=== PATIENT | female | born 1945 | race African-American/Black ===

== ENCOUNTER 2020-11-22 12:21 | Outpatient (CLI) | payer MEDICARE | END 2020-11-22 12:22 | disposition home or self-care (01) | LOC: CSHRAD 12:21 | PROVIDERS: ATTEND Internal Medicine | DX: M25.552 Pain in left hip (principal); M25.532 Pain in left wrist; M16.12 Unilateral primary osteoarthritis, left hip; M19.032 Primary osteoarthritis, left wrist ==

== ENCOUNTER 2021-11-01 10:49 | Inpatient (IN) | payer OTHER, MEDICAID, MEDICARE ==
[2021-11-01 11:14] LABS: #Eosinphils 0.3 10x3/uL (0.0-0.5); #Monocytes 0.6 10x3/uL (0.0-1.1); #Neutrophils 5.5 10x3/uL (1.5-8.4); %Basophils 0.4 % (0.0-2.0); %Eosinophils 3.4 % (0.0-6.0); %Lymphocytes 27.4 % (18.0-47.0); %Monocytes 6.7 % (0.0-10.0); %Neutrophils 61.2 % (40.0-75.0); Hemoglobin 13.1 g/dL (12.0-15.5); Mean Corpuscular HGB CONC 31.4 g/dL (32.0-36.0); Mean Corpuscular Hemoglobin 27.4 pg (27.0-33.0); Mean Corpuscular Volume 87.2 fl (81.6-98.3); Mean Platelet Volume 11.4 fl (7.4-10.4); Platelet Count 252 10x3/uL (150-450); RBC Distribution Width 16.1 % (11.5-14.5); Red Blood Cell (RBC) Count 4.78 10x6/uL (3.90-5.03)
[2021-11-01 11:28] LABS: INR-International Normal Ratio 0.9; PTT 25.4 sec (22.0-33.0); Prothrombin Time 10.3 sec (9.5-12.1)
[2021-11-01 11:33] LABS: ALT (SGPT) 25 U/L (8-55); AST (SGOT) 24 U/L (5-34); Albumin 3.3 g/dL (3.4-4.8); Alkaline Phosphatase 108 U/L (40-110); Anion Gap 12 mmol/L (10-20); BUN (Urea Nitrogen) 33 mg/dL (9.8-20.1); Bilirubin, Total 0.3 mg/dL (0.2-1.2); Calc. Creatinine Clearance 0 mL/min (70-130); Carbon Dioxide 24 mmol/L (23-31); Chloride 108 mmol/L (98-107); Globulin 2.5 g/dL (2.4-3.5); Glucose 346 mg/dL (83-110); Potassium 4.3 mmol/L (3.5-5.1); Protein, Total 5.8 g/dL (5.8-8.1); Sodium 140 mmol/L (136-145)
[2021-11-01 13:26] LABS: Bilirubin Neg (Negative); Blood, Urine 10 (Negative); Clarity Slightly Cloudy (Clear); Glucose, Urine (Dipstick) >=1000 mg/dL (Negative); Ketone, Urine Negative (Negative); Leukocyte 500 (Negative); Nitrite Positive (Negative); Protein, Urine (Dipstick) 30 mg/dl (Neg-Trace); Specific Gravity, Urine 1.005 (1.002-1.036); Urobilinogen Normal mg/dL (Less than 2)
[2021-11-01 13:42] LABS: Bacteria/HPF 2+ HPF (None Seen)
[2021-11-01] MEDS ORDERED: traMADol HCl 50 MG TAB PO PRN (15:05)
[2021-11-01] MEDS ORDERED: Dextrose 50% Abboject 50 ML SYRINGE SLOW IVP PRN (15:07)
[2021-11-01] MEDS ORDERED: Ondansetron PF 4 MG/2 ML Vial IVP PRN (15:07)
[2021-11-01] MEDS ORDERED: Dextrose 5% in Water 1,000 ML IV PRN (15:07)
[2021-11-01] MEDS ORDERED: Acetaminophen 325 MG TAB PO PRN (15:07)
[2021-11-01] MEDS ORDERED: Lactated Ringer's 1,000 ML IV SCH (15:15)
[2021-11-01] MEDS ORDERED: Aspirin Chewable 81 MG TAB ONE (16:06)
[2021-11-01] MEDS ORDERED: cefTRIAXone\\ROCEPHIN 1 GM VIAL ONE (16:06)
[2021-11-01 19:33] VITALS: BMI 33.3
[2021-11-01] MEDS: Atorvastatin Calcium 10 MG TAB PO SCH (21:47)
[2021-11-01] MEDS: busPIRone HCl 15 MG TAB PO SCH (21:49)
[2021-11-01] MEDS: Amlodipine 10 MG TAB PO SCH (21:49)
[2021-11-01] MEDS: HumaLOG 300 UNITS/3 ML VIAL SC PRN (21:51)
[2021-11-01] MEDS: Nateglinide 120 MG TAB PO SCH (21:57)
[2021-11-01] MEDS ORDERED: hydrALAZINE 25 MG TAB PO SCH (23:45)
[2021-11-02 04:49] LABS: #Basophils 0.1 10x3/uL (0.0-0.2); #Eosinphils 0.4 10x3/uL (0.0-0.5); #Monocytes 0.7 10x3/uL (0.0-1.1); #Neutrophils 7.5 10x3/uL (1.5-8.4); %Basophils 0.4 % (0.0-2.0); %Eosinophils 3.2 % (0.0-6.0); %Lymphocytes 21.9 % (18.0-47.0); %Monocytes 6.5 % (0.0-10.0); %Neutrophils 67.4 % (40.0-75.0); Hemoglobin 14.5 g/dL (12.0-15.5); Mean Corpuscular HGB CONC 31.3 g/dL (32.0-36.0); Mean Corpuscular Hemoglobin 27.3 pg (27.0-33.0); Mean Platelet Volume 11.9 fl (7.4-10.4); Platelet Count 270 10x3/uL (150-450); RBC Distribution Width 16.7 % (11.5-14.5); Red Blood Cell (RBC) Count 5.32 10x6/uL (3.90-5.03); White Blood Cell (WBC) Count 11.2 10x3/uL (3.5-10.5)
[2021-11-02 05:11] LABS: Anion Gap 15 mmol/L (10-20); BUN (Urea Nitrogen) 29 mg/dL (9.8-20.1); Calc. Creatinine Clearance 48 mL/min (70-130); Calcium 9.2 mg/dL (7.8-10.44); Carbon Dioxide 21 mmol/L (23-31); Chloride 110 mmol/L (98-107); Glucose 239 mg/dL (83-110); Potassium 4.2 mmol/L (3.5-5.1); Sodium 142 mmol/L (136-145)
[2021-11-02] MEDS: HumaLOG 300 UNITS/3 ML VIAL SC PRN ×3 (06:39→21:16)
[2021-11-02] MEDS ORDERED: Furosemide 40 MG TAB PO SCH (09:00)
[2021-11-02] MEDS: Allopurinol 300 MG TAB PO SCH (09:10)
[2021-11-02] MEDS: Clopidogrel Bisulfate 75 MG TAB PO SCH (09:10)
[2021-11-02] MEDS: Empagliflozin 10 MG TAB PO SCH (09:10)
[2021-11-02] MEDS: Potassium Chloride 10 MEQ TAB PO SCH (09:10)
[2021-11-02] MEDS: Nateglinide 120 MG TAB PO SCH ×3 (09:10→21:15)
[2021-11-02] MEDS: busPIRone HCl 15 MG TAB PO SCH ×3 (09:11→21:16)
[2021-11-02] MEDS: Aspirin 81 mg Enteric Coated Tablet PO SCH (09:11)
[2021-11-02] MEDS ORDERED: cefTRIAXone\\ROCEPHIN 1 GM in Sodium Chloride 0.9% 100 ML IVPB SCH (16:00)
[2021-11-02] MEDS: Amlodipine 10 MG TAB PO SCH (21:16)
[2021-11-02] MEDS: Atorvastatin Calcium 10 MG TAB PO SCH (21:16)
[2021-11-03 04:42] LABS: #Basophils 0.1 10x3/uL (0.0-0.2); #Eosinphils 0.3 10x3/uL (0.0-0.5); #Monocytes 0.7 10x3/uL (0.0-1.1); #Neutrophils 8.5 10x3/uL (1.5-8.4); %Basophils 0.6 % (0.0-2.0); %Eosinophils 2.8 % (0.0-6.0); %Lymphocytes 21.7 % (18.0-47.0); %Monocytes 5.7 % (0.0-10.0); %Neutrophils 68.6 % (40.0-75.0); Hemoglobin 14.8 g/dL (12.0-15.5); Mean Corpuscular HGB CONC 31.7 g/dL (32.0-36.0); Mean Corpuscular Hemoglobin 27.1 pg (27.0-33.0); Mean Corpuscular Volume 85.5 fl (81.6-98.3); Mean Platelet Volume 11.3 fl (7.4-10.4); Platelet Count 285 10x3/uL (150-450); RBC Distribution Width 16.3 % (11.5-14.5); Red Blood Cell (RBC) Count 5.46 10x6/uL (3.90-5.03); White Blood Cell (WBC) Count 12.4 10x3/uL (3.5-10.5)
[2021-11-03 04:53] LABS: Anion Gap 15 mmol/L (10-20); BUN (Urea Nitrogen) 32 mg/dL (9.8-20.1); Calc. Creatinine Clearance 52 mL/min (70-130); Calcium 9.7 mg/dL (7.8-10.44); Carbon Dioxide 19 mmol/L (23-31); Chloride 112 mmol/L (98-107); Glucose 197 mg/dL (83-110); Potassium 4.2 mmol/L (3.5-5.1); Sodium 142 mmol/L (136-145)
[2021-11-03] MEDS: HumaLOG 300 UNITS/3 ML VIAL SC PRN (05:44)
[2021-11-03] MEDS: Potassium Chloride 10 MEQ TAB PO SCH (08:30)
[2021-11-03] MEDS: Nateglinide 120 MG TAB PO SCH ×2 (08:30→14:55)
[2021-11-03] MEDS: Aspirin 81 mg Enteric Coated Tablet PO SCH (08:30)
[2021-11-03] MEDS: busPIRone HCl 15 MG TAB PO SCH ×2 (08:31→14:54)
[2021-11-03] MEDS: Empagliflozin 10 MG TAB PO SCH (08:31)
[2021-11-03] MEDS: Allopurinol 300 MG TAB PO SCH (08:31)
[2021-11-03] MEDS: Clopidogrel Bisulfate 75 MG TAB PO SCH (08:31)
[2021-11-03] MEDS ORDERED: Sodium Bicarbonate Tab 325 MG TAB PO SCH ×2 (09:15→21:00)
[2021-11-03 16:43] VITALS: BP 180/95; TEMP 97.8
[2021-11-04] MEDS ORDERED: Non-Formulary Medication 1 EACH (Semaglutide [Rybelsus] 14 MG Tablet) PO SCH (06:00)
== END 2021-11-03 18:00 | disposition home or self-care (01) | DRG 683 ==
LOC: CSHERS 10:49 → CSHTELE 15:44 → UNDOADMIN 15:44 → CSHTELE 11-03 09:09 → UNDODISIN 11-03 18:00
PROVIDERS: ADMIT Internal Medicine; ATTEND Hospitalist
DX: N17.9 Acute kidney failure, unspecified (principal); G45.9 Transient cerebral ischemic attack, unspecified; N18.30 Chronic kidney disease, stage 3 unspecified; I12.9 Hypertensive chronic kidney disease with stage 1 through stage 4 chronic kidney disease, or unspecified chronic kidney disease; E11.22 Type 2 diabetes mellitus with diabetic chronic kidney disease; E78.5 Hyperlipidemia, unspecified; M10.9 Gout, unspecified; R82.81 Pyuria; E66.9 Obesity, unspecified; I25.10 Atherosclerotic heart disease of native coronary artery without angina pectoris; Z79.899 Other long term (current) drug therapy; Z68.33 Body mass index [BMI] 33.0-33.9, adult
CPT/HCPCS: 36415; 36416; 70450; 70551; 71045; 80048; 80053; 81003; 81015; 84484; 85025; 85610; 85730; 87086; 93005; 93306; 93880; 96365; J0696; J1815; J3490; J7120

== ENCOUNTER 2021-11-22 12:28 | Inpatient (IN) | payer MEDICARE, MEDICAID ==
[2021-11-22 13:23] LABS: Lipase 26 U/L (8-78); Magnesium 2.3 mg/dL (1.6-2.6)
[2021-11-22 15:56] LABS: #Basophils 0.1 10x3/uL (0.0-0.2); #Eosinphils 0.4 10x3/uL (0.0-0.5); #Monocytes 0.8 10x3/uL (0.0-1.1); #Neutrophils 6.6 10x3/uL (1.5-8.4); %Basophils 0.5 % (0.0-2.0); %Eosinophils 3.2 % (0.0-6.0); %Lymphocytes 27.5 % (18.0-47.0); %Monocytes 7.6 % (0.0-10.0); %Neutrophils 60.4 % (40.0-75.0); Hemoglobin 12.6 g/dL (12.0-15.5); Mean Corpuscular HGB CONC 31.2 g/dL (32.0-36.0); Mean Corpuscular Hemoglobin 27.6 pg (27.0-33.0); Mean Corpuscular Volume 88.6 fl (81.6-98.3); Mean Platelet Volume 11.9 fl (7.4-10.4); Platelet Count 251 10x3/uL (150-450); RBC Distribution Width 16.1 % (11.5-14.5); Red Blood Cell (RBC) Count 4.56 10x6/uL (3.90-5.03)
[2021-11-22 16:09] LABS: ALT (SGPT) 15 U/L (8-55); AST (SGOT) 18 U/L (5-34); Albumin 3.5 g/dL (3.4-4.8); Alkaline Phosphatase 87 U/L (40-110); Anion Gap 12 mmol/L (10-20); BUN (Urea Nitrogen) 23 mg/dL (9.8-20.1); Bilirubin, Total 0.4 mg/dL (0.2-1.2); Calc. Creatinine Clearance 0 mL/min (70-130); Calcium 9.3 mg/dL (7.8-10.44); Carbon Dioxide 24 mmol/L (23-31); Chloride 106 mmol/L (98-107); Globulin 2.2 g/dL (2.4-3.5); Glucose 210 mg/dL (83-110); Protein, Total 5.7 g/dL (5.8-8.1); Sodium 138 mmol/L (136-145)
[2021-11-22] MEDS ORDERED: HYDROcodone/Acetaminophen 5/325 mg Tablet PO PRN (18:10)
[2021-11-22] MEDS ORDERED: Ondansetron PF 4 MG/2 ML Vial IVP PRN (18:10)
[2021-11-22 19:13] VITALS: BMI 33.2
[2021-11-22 19:16] LABS: Bilirubin Neg (Negative); Blood, Urine Negative (Negative); Clarity Clear (Clear); Glucose, Urine (Dipstick) >=1000 mg/dL (Negative); Ketone, Urine Negative (Negative); Leukocyte 100 (Negative); Nitrite Negative (Negative); Protein, Urine (Dipstick) Negative (Neg-Trace); Specific Gravity, Urine 1.005 (1.002-1.036); Urobilinogen Normal mg/dL (Less than 2)
[2021-11-22 19:21] LABS: Urine Culture Reflex No No
[2021-11-22 19:22] LABS: RBC/HPF 0-3 HPF (0-3)
[2021-11-22 19:23] LABS: Bacteria/HPF 1+ HPF (None Seen); Squamous Epithelial 0-3 HPF (0-3)
[2021-11-22] MEDS ORDERED: Dextrose 50% Abboject 50 ML SYRINGE SLOW IVP PRN (19:30)
[2021-11-22] MEDS ORDERED: Dextrose 5% in Water 1,000 ML IV PRN (19:30)
[2021-11-22] MEDS: Lactated Ringer's 1,000 ML IV SCH (19:46)
[2021-11-22] MEDS: Acetaminophen 325 MG TAB PO PRN (21:22)
[2021-11-22] MEDS: Atorvastatin Calcium 10 MG TAB PO SCH (21:25)
[2021-11-22] MEDS: Gabapentin 300 MG CAP PO SCH (21:25)
[2021-11-22] MEDS: Sodium Bicarbonate Tab 325 MG TAB PO SCH (21:25)
[2021-11-22] MEDS: busPIRone HCl 15 MG TAB PO SCH (21:25)
[2021-11-22] MEDS: HumaLOG 300 UNITS/3 ML VIAL SC PRN (21:26)
[2021-11-22] MEDS: Heparin 5,000 UNITS/ML VIAL SC SCH (21:54)
[2021-11-23 04:59] LABS: Hemoglobin 14.6 g/dL (12.0-15.5); Mean Corpuscular HGB CONC 31.1 g/dL (32.0-36.0); Mean Corpuscular Hemoglobin 27.4 pg (27.0-33.0); Mean Corpuscular Volume 88.2 fl (81.6-98.3); Mean Platelet Volume 11.2 fl (7.4-10.4); Platelet Count 261 10x3/uL (150-450); RBC Distribution Width 16.2 % (11.5-14.5); Red Blood Cell (RBC) Count 5.32 10x6/uL (3.90-5.03); White Blood Cell (WBC) Count 9.3 10x3/uL (3.5-10.5)
[2021-11-23 05:09] LABS: Anion Gap 16 mmol/L (10-20); BUN (Urea Nitrogen) 22 mg/dL (9.8-20.1); Calc. Creatinine Clearance 32 mL/min (70-130); Calcium 10.2 mg/dL (7.8-10.44); Carbon Dioxide 26 mmol/L (23-31); Chloride 107 mmol/L (98-107); Glucose 166 mg/dL (83-110); Potassium 3.6 mmol/L (3.5-5.1); Sodium 145 mmol/L (136-145)
[2021-11-23] MEDS: HumaLOG 300 UNITS/3 ML VIAL SC PRN ×4 (06:13→20:06)
[2021-11-23] MEDS: Lactated Ringer's 1,000 ML IV SCH ×2 (08:54→21:31)
[2021-11-23] MEDS: Lantus 1000 UNITS/10 ML VIAL SC SCH (08:54)
[2021-11-23] MEDS: Clopidogrel Bisulfate 75 MG TAB PO SCH (08:55)
[2021-11-23] MEDS: Amlodipine 10 MG TAB PO SCH (08:55)
[2021-11-23] MEDS: Empagliflozin 10 MG TAB PO SCH (08:55)
[2021-11-23] MEDS: Gabapentin 300 MG CAP PO SCH ×2 (08:55→20:05)
[2021-11-23] MEDS: Heparin 5,000 UNITS/ML VIAL SC SCH ×3 (08:55→20:06)
[2021-11-23] MEDS: busPIRone HCl 15 MG TAB PO SCH ×2 (08:55→20:06)
[2021-11-23] MEDS: Sodium Bicarbonate Tab 325 MG TAB PO SCH ×2 (08:55→20:06)
[2021-11-23] MEDS: Aspirin 81 mg Enteric Coated Tablet PO SCH (08:55)
[2021-11-23] MEDS: Allopurinol 300 MG TAB PO SCH (08:55)
[2021-11-23 15:50] LABS: SARS-CoV-2 PCR by NAA Not Detected (NotDetected)
[2021-11-23] MEDS: Atorvastatin Calcium 10 MG TAB PO SCH (20:06)
[2021-11-24] MEDS: HumaLOG 300 UNITS/3 ML VIAL SC PRN ×4 (03:49→21:56)
[2021-11-24] MEDS: Acetaminophen 325 MG TAB PO PRN (04:38)
[2021-11-24] MEDS: Heparin 5,000 UNITS/ML VIAL SC SCH ×3 (09:04→21:50)
[2021-11-24] MEDS: Clopidogrel Bisulfate 75 MG TAB PO SCH (09:04)
[2021-11-24] MEDS: Allopurinol 300 MG TAB PO SCH (09:04)
[2021-11-24] MEDS: Sodium Bicarbonate Tab 325 MG TAB PO SCH ×2 (09:04→21:33)
[2021-11-24] MEDS: Empagliflozin 10 MG TAB PO SCH (09:04)
[2021-11-24] MEDS: Aspirin 81 mg Enteric Coated Tablet PO SCH (09:04)
[2021-11-24] MEDS: Gabapentin 300 MG CAP PO SCH ×2 (09:04→21:32)
[2021-11-24] MEDS: busPIRone HCl 15 MG TAB PO SCH ×2 (09:04→21:32)
[2021-11-24] MEDS: Lantus 1000 UNITS/10 ML VIAL SC SCH (09:04)
[2021-11-24] MEDS: Amlodipine 10 MG TAB PO SCH (09:04)
[2021-11-24] MEDS ORDERED: cefTRIAXone\\ROCEPHIN 1 GM in Sodium Chloride 0.9% 100 ML IVPB SCH (09:45)
[2021-11-24] MEDS ORDERED: Amoxicillin/Potassium Clav 500 MG TAB PO SCH (10:30)
[2021-11-24] MEDS: Lactated Ringer's 1,000 ML IV SCH (10:39)
[2021-11-24] MEDS: Atorvastatin Calcium 10 MG TAB PO SCH (21:33)
[2021-11-24] MEDS: Amoxicillin/Potassium Clav 500 MG TAB PO SCH (21:36)
[2021-11-25] MEDS: HumaLOG 300 UNITS/3 ML VIAL SC PRN ×4 (06:44→20:23)
[2021-11-25] MEDS: Senokot 8.6 MG TAB PO PRN ×2 (06:46→17:25)
[2021-11-25 09:05] LABS: #Basophils 0.1 10x3/uL (0.0-0.2); #Eosinphils 0.4 10x3/uL (0.0-0.5); #Monocytes 0.6 10x3/uL (0.0-1.1); #Neutrophils 5.5 10x3/uL (1.5-8.4); %Basophils 0.6 % (0.0-2.0); %Monocytes 6.6 % (0.0-10.0); %Neutrophils 58.1 % (40.0-75.0); Hemoglobin 14.6 g/dL (12.0-15.5); Mean Corpuscular HGB CONC 31.2 g/dL (32.0-36.0); Mean Corpuscular Hemoglobin 28.1 pg (27.0-33.0); Mean Platelet Volume 11.1 fl (7.4-10.4); Platelet Count 261 10x3/uL (150-450); RBC Distribution Width 16.1 % (11.5-14.5); White Blood Cell (WBC) Count 9.5 10x3/uL (3.5-10.5)
[2021-11-25] MEDS: busPIRone HCl 15 MG TAB PO SCH ×2 (09:13→20:22)
[2021-11-25] MEDS: Sodium Bicarbonate Tab 325 MG TAB PO SCH ×2 (09:13→20:21)
[2021-11-25] MEDS: Aspirin 81 mg Enteric Coated Tablet PO SCH (09:14)
[2021-11-25] MEDS: Allopurinol 300 MG TAB PO SCH (09:14)
[2021-11-25] MEDS: Lantus 1000 UNITS/10 ML VIAL SC SCH (09:15)
[2021-11-25] MEDS: Amlodipine 10 MG TAB PO SCH (09:15)
[2021-11-25] MEDS: Gabapentin 300 MG CAP PO SCH ×2 (09:15→20:21)
[2021-11-25] MEDS: Heparin 5,000 UNITS/ML VIAL SC SCH ×3 (09:15→20:24)
[2021-11-25] MEDS: Clopidogrel Bisulfate 75 MG TAB PO SCH (09:15)
[2021-11-25] MEDS: Empagliflozin 10 MG TAB PO SCH (09:17)
[2021-11-25] MEDS: Amoxicillin/Potassium Clav 500 MG TAB PO SCH ×2 (09:17→20:22)
[2021-11-25 09:31] LABS: Anion Gap 12 mmol/L (10-20); BUN (Urea Nitrogen) 26 mg/dL (9.8-20.1); Calc. Creatinine Clearance 45 mL/min (70-130); Calcium 9.8 mg/dL (7.8-10.44); Carbon Dioxide 26 mmol/L (23-31); Chloride 110 mmol/L (98-107); Glucose 127 mg/dL (83-110); Potassium 3.7 mmol/L (3.5-5.1); Sodium 144 mmol/L (136-145)
[2021-11-25] MEDS: Atorvastatin Calcium 10 MG TAB PO SCH (20:22)
[2021-11-26] MEDS: HumaLOG 300 UNITS/3 ML VIAL SC PRN ×3 (06:39→21:28)
[2021-11-26] MEDS: Allopurinol 300 MG TAB PO SCH (09:28)
[2021-11-26] MEDS: busPIRone HCl 15 MG TAB PO SCH ×2 (09:28→21:27)
[2021-11-26] MEDS: Aspirin 81 mg Enteric Coated Tablet PO SCH (09:28)
[2021-11-26] MEDS: Empagliflozin 10 MG TAB PO SCH (09:28)
[2021-11-26] MEDS: Sodium Bicarbonate Tab 325 MG TAB PO SCH ×2 (09:28→21:27)
[2021-11-26] MEDS: Amlodipine 10 MG TAB PO SCH (09:28)
[2021-11-26] MEDS: Clopidogrel Bisulfate 75 MG TAB PO SCH (09:28)
[2021-11-26] MEDS: Heparin 5,000 UNITS/ML VIAL SC SCH ×3 (09:29→21:29)
[2021-11-26] MEDS: Gabapentin 300 MG CAP PO SCH ×2 (09:29→21:28)
[2021-11-26] MEDS: Lantus 1000 UNITS/10 ML VIAL SC SCH (09:29)
[2021-11-26] MEDS ORDERED: AMOXicillin 500 MG CAP PO SCH (14:00)
[2021-11-26] MEDS ORDERED: AMOXicillin 250 MG CAP PO SCH (14:45)
[2021-11-26] MEDS: Amoxicillin/Potassium Clav 500 MG TAB PO SCH (15:12)
[2021-11-26] MEDS: Atorvastatin Calcium 10 MG TAB PO SCH (21:27)
[2021-11-26] MEDS: AMOXicillin 250 MG CAP PO SCH (23:50)
[2021-11-27] MEDS: AMOXicillin 250 MG CAP PO SCH ×2 (06:18→14:22)
[2021-11-27] MEDS: HumaLOG 300 UNITS/3 ML VIAL SC PRN ×2 (06:19→11:43)
[2021-11-27] MEDS: busPIRone HCl 15 MG TAB PO SCH (08:53)
[2021-11-27] MEDS: Gabapentin 300 MG CAP PO SCH (08:53)
[2021-11-27] MEDS: Empagliflozin 10 MG TAB PO SCH (08:53)
[2021-11-27] MEDS: Sodium Bicarbonate Tab 325 MG TAB PO SCH (08:53)
[2021-11-27] MEDS: Amlodipine 10 MG TAB PO SCH (08:53)
[2021-11-27] MEDS: Aspirin 81 mg Enteric Coated Tablet PO SCH (08:53)
[2021-11-27] MEDS: Clopidogrel Bisulfate 75 MG TAB PO SCH (08:53)
[2021-11-27] MEDS: Heparin 5,000 UNITS/ML VIAL SC SCH ×2 (08:54→14:22)
[2021-11-27] MEDS: Allopurinol 300 MG TAB PO SCH (08:54)
[2021-11-27] MEDS: Lantus 1000 UNITS/10 ML VIAL SC SCH (08:54)
[2021-11-27 11:46] VITALS: TEMP 97
[2021-11-27] MEDS ORDERED: Benzonatate 100 MG CAP PO PRN (13:13)
[2021-11-27 15:34] VITALS: BP 157/87
[2021-11-28] MEDS ORDERED: Furosemide 40 MG TAB PO SCH (07:30)
== END 2021-11-27 15:35 | DRG 683 ==
LOC: CSHERS 12:28 → CSHTELE 18:32
PROVIDERS: ADMIT Internal Medicine; ATTEND Emergency Medicine
DX: N17.9 Acute kidney failure, unspecified (principal); I13.0 Hypertensive heart and chronic kidney disease with heart failure and stage 1 through stage 4 chronic kidney disease, or unspecified chronic kidney disease; I50.32 Chronic diastolic (congestive) heart failure; N39.0 Urinary tract infection, site not specified; Z20.822 Contact with and (suspected) exposure to COVID-19; E11.22 Type 2 diabetes mellitus with diabetic chronic kidney disease; M10.9 Gout, unspecified; N18.2 Chronic kidney disease, stage 2 (mild); I25.10 Atherosclerotic heart disease of native coronary artery without angina pectoris; E11.42 Type 2 diabetes mellitus with diabetic polyneuropathy; F32.A Depression, unspecified; E86.0 Dehydration; K21.9 Gastro-esophageal reflux disease without esophagitis; B95.2 Enterococcus as the cause of diseases classified elsewhere; Z60.2 Problems related to living alone; Z90.710 Acquired absence of both cervix and uterus; Z79.899 Other long term (current) drug therapy; Z86.73 Personal history of transient ischemic attack (TIA), and cerebral infarction without residual deficits; Z79.02 Long term (current) use of antithrombotics/antiplatelets; Z79.82 Long term (current) use of aspirin; Z83.3 Family history of diabetes mellitus; Z82.49 Family history of ischemic heart disease and other diseases of the circulatory system; Z95.5 Presence of coronary angioplasty implant and graft
CPT/HCPCS: 36415; 36416; 70450; 72125; 72131; 72170; 80048; 80053; 81001; 82550; 83690; 83735; 84443; 84484; 85025; 85027; 87077; 87086; 87186; 93005; 94760; J1644; J1815; J7120; U0003; U0005

== ENCOUNTER 2022-03-27 12:46 | Emergency (ER) | payer OTHER ==
[2022-03-27 13:25] LABS: #Basophils 0.1 10x3/uL (0.0-0.2); #Eosinphils 0.3 10x3/uL (0.0-0.5); #Monocytes 0.5 10x3/uL (0.0-1.1); #Neutrophils 6.7 10x3/uL (1.5-8.4); %Basophils 0.5 % (0.0-2.0); %Eosinophils 2.7 % (0.0-6.0); %Lymphocytes 19.4 % (18.0-47.0); %Monocytes 5.5 % (0.0-10.0); %Neutrophils 71.7 % (40.0-75.0); Mean Corpuscular Hemoglobin 27.4 pg (27.0-33.0); Mean Corpuscular Volume 88.4 fl (81.6-98.3); Mean Platelet Volume 10.9 fl (7.4-10.4); Platelet Count 273 10x3/uL (150-450); RBC Distribution Width 15.1 % (11.5-14.5); Red Blood Cell (RBC) Count 4.75 10x6/uL (3.90-5.03); White Blood Cell (WBC) Count 9.4 10x3/uL (3.5-10.5)
[2022-03-27 13:40] LABS: ALT (SGPT) 18 U/L (8-55); AST (SGOT) 22 U/L (5-34); Albumin 2.5 g/dL (3.4-4.8); Alkaline Phosphatase 102 U/L (40-110); Anion Gap 11 mmol/L (10-20); BUN (Urea Nitrogen) 37 mg/dL (9.8-20.1); Bilirubin, Total 0.3 mg/dL (0.2-1.2); Calc. Creatinine Clearance 0 mL/min (70-130); Calcium 8.1 mg/dL (7.8-10.44); Carbon Dioxide 22 mmol/L (23-31); Chloride 114 mmol/L (98-107); Estimated GFR 26; Globulin 2.1 g/dL (2.4-3.5); Glucose 178 mg/dL (83-110); Protein, Total 4.6 g/dL (5.8-8.1); Sodium 143 mmol/L (136-145)
[2022-03-27] MEDS ORDERED: Furosemide 40 MG/4 ML VIAL ONE (14:43)
== END 2022-03-27 15:05 | disposition home or self-care (01) ==
LOC: CSHERS 12:46
DX: I11.0 Hypertensive heart disease with heart failure (principal); I50.9 Heart failure, unspecified; E11.9 Type 2 diabetes mellitus without complications
CPT/HCPCS: 36415; 71045; 80053; 84484; 85025; 93005; 96374; J1940

== ENCOUNTER 2022-05-14 14:02 | Emergency (ER) | payer OTHER, MEDICAID ==
[2022-05-14 16:18] LABS: #Basophils 0.1 10x3/uL (0.0-0.2); #Eosinphils 0.6 10x3/uL (0.0-0.5); #Monocytes 0.7 10x3/uL (0.0-1.1); #Neutrophils 7.4 10x3/uL (1.5-8.4); %Basophils 0.6 % (0.0-2.0); %Eosinophils 4.9 % (0.0-6.0); %Lymphocytes 21.8 % (18.0-47.0); %Monocytes 6.4 % (0.0-10.0); %Neutrophils 65.4 % (40.0-75.0); Hemoglobin 15.8 g/dL (12.0-15.5); Mean Corpuscular HGB CONC 32.2 g/dL (32.0-36.0); Mean Corpuscular Hemoglobin 28.2 pg (27.0-33.0); Mean Corpuscular Volume 87.5 fl (81.6-98.3); Mean Platelet Volume 10.9 fl (7.4-10.4); Platelet Count 319 10x3/uL (150-450); RBC Distribution Width 16.9 % (11.5-14.5); Red Blood Cell (RBC) Count 5.61 10x6/uL (3.90-5.03); White Blood Cell (WBC) Count 11.3 10x3/uL (3.5-10.5)
[2022-05-14 16:20] LABS: ALT (SGPT) 12 U/L (8-55); AST (SGOT) 20 U/L (5-34); Albumin 2.2 g/dL (3.4-4.8); Alkaline Phosphatase 102 U/L (40-110); Anion Gap 12 mmol/L (10-20); BUN (Urea Nitrogen) 44 mg/dL (9.8-20.1); Bilirubin, Total 0.2 mg/dL (0.2-1.2); Calc. Creatinine Clearance 0 mL/min (70-130); Calcium 8.4 mg/dL (7.8-10.44); Carbon Dioxide 19 mmol/L (23-31); Chloride 111 mmol/L (98-107); Estimated GFR 12; Globulin 2.9 g/dL (2.4-3.5); Glucose 156 mg/dL (83-110); Potassium 3.7 mmol/L (3.5-5.1); Protein, Total 5.1 g/dL (5.8-8.1); Sodium 138 mmol/L (136-145)
[2022-05-14] MEDS ORDERED: Furosemide 40 MG/4 ML VIAL ONE (16:20)
[2022-05-14] MEDS ORDERED: Acetaminophen 500 MG TAB ONE (19:32)
[2022-05-14 20:50] LABS: CKMB 2.8 ng/mL (0-6.6)
== END 2022-05-14 21:50 | disposition home or self-care (01) ==
LOC: CSHERS 14:02
DX: I11.0 Hypertensive heart disease with heart failure (principal); I50.9 Heart failure, unspecified; E11.9 Type 2 diabetes mellitus without complications
CPT/HCPCS: 36415; 71045; 80053; 82553; 83880; 84484; 85025; 93005; 96374; J1940

== ENCOUNTER 2022-05-29 16:50 | Observation (INO) | payer OTHER, MEDICAID ==
[2022-05-29 18:18] LABS: #Eosinphils 0.3 10x3/uL (0.0-0.5); #Monocytes 0.6 10x3/uL (0.0-1.1); #Neutrophils 7.5 10x3/uL (1.5-8.4); %Basophils 0.4 % (0.0-2.0); %Lymphocytes 23.8 % (18.0-47.0); %Monocytes 5.7 % (0.0-10.0); %Neutrophils 66.7 % (40.0-75.0); Mean Corpuscular HGB CONC 32.3 g/dL (32.0-36.0); Mean Corpuscular Hemoglobin 28.1 pg (27.0-33.0); Mean Corpuscular Volume 86.8 fl (81.6-98.3); Mean Platelet Volume 11.1 fl (7.4-10.4); Platelet Count 322 10x3/uL (150-450); RBC Distribution Width 16.8 % (11.5-14.5); Red Blood Cell (RBC) Count 4.99 10x6/uL (3.90-5.03); White Blood Cell (WBC) Count 11.2 10x3/uL (3.5-10.5)
[2022-05-29 18:33] LABS: ALT (SGPT) 10 U/L (8-55); AST (SGOT) 19 U/L (5-34); Albumin 2.1 g/dL (3.4-4.8); Alkaline Phosphatase 103 U/L (40-110); Anion Gap 13 mmol/L (10-20); BUN (Urea Nitrogen) 54 mg/dL (9.8-20.1); Bilirubin, Total 0.2 mg/dL (0.2-1.2); Calc. Creatinine Clearance 0 mL/min (70-130); Calcium 8.3 mg/dL (7.8-10.44); Carbon Dioxide 23 mmol/L (23-31); Chloride 108 mmol/L (98-107); Estimated GFR 13; Globulin 2.2 g/dL (2.4-3.5); Glucose 107 mg/dL (83-110); Potassium 3.3 mmol/L (3.5-5.1); Protein, Total 4.3 g/dL (5.8-8.1); Sodium 141 mmol/L (136-145)
[2022-05-29] MEDS ORDERED: Furosemide 40 MG/4 ML VIAL ONE (18:54)
[2022-05-29 19:13] LABS: CKMB 2.6 ng/mL (0-6.6)
[2022-05-29] MEDS ORDERED: Dextrose 5% in Water 1,000 ML IV PRN (20:07)
[2022-05-29] MEDS ORDERED: Dextrose 50% Abboject 50 ML SYRINGE SLOW IVP PRN (20:07)
[2022-05-29] MEDS ORDERED: HumaLOG 300 UNITS/3 ML VIAL SC PRN (20:07)
[2022-05-29 20:28] LABS: Magnesium 2.1 mg/dL (1.6-2.6); Phosphorus 3.5 mg/dL (2.3-4.7)
[2022-05-29 21:02] LABS: Troponin I 0.077 ng/mL (< 0.028)
[2022-05-29] MEDS ORDERED: Potassium Chloride 20 MEQ TAB PO SCH (21:15)
[2022-05-29] MEDS: Amlodipine 10 MG TAB PO SCH (22:11)
[2022-05-29] MEDS: Heparin 5,000 UNITS/ML VIAL SC SCH (22:12)
[2022-05-29] MEDS: busPIRone HCl 5 MG TAB PO SCH (22:12)
[2022-05-29] MEDS: Atorvastatin Calcium 10 MG TAB PO SCH (22:12)
[2022-05-29] MEDS ORDERED: FLU VACC QS2022-23(65YR UP)/PF 240 MCG/0.7 ML SYRINGE IM ONE (23:45)
[2022-05-30] LABS: Troponin I 0.075 ng/mL (< 0.028)
[2022-05-30 00:55] LABS: Bilirubin Neg (Negative); Blood, Urine 10 (Negative); Clarity Clear (Clear); Glucose, Urine (Dipstick) 100 mg/dL (Negative); Ketone, Urine Negative (Negative); Leukocyte Negative (Negative); Nitrite Negative (Negative); Protein, Urine (Dipstick) 500 mg/dl (Neg-Trace); Specific Gravity, Urine 1.005 (1.005-1.030); Urobilinogen Normal mg/dL (Less than 2)
[2022-05-30 01:02] LABS: Bacteria/HPF Rare-Few HPF (None Seen); RBC/HPF 0-3 HPF (0-3); Squamous Epithelial 0-3 HPF (0-3); WBC/HPF 0-3 HPF (0-3)
[2022-05-30 05:24] LABS: #Basophils 0.1 10x3/uL (0.0-0.2); #Eosinphils 0.5 10x3/uL (0.0-0.5); #Monocytes 0.8 10x3/uL (0.0-1.1); #Neutrophils 5.1 10x3/uL (1.5-8.4); %Basophils 0.5 % (0.0-2.0); %Eosinophils 5.2 % (0.0-6.0); %Lymphocytes 33.1 % (18.0-47.0); %Monocytes 7.8 % (0.0-10.0); %Neutrophils 52.6 % (40.0-75.0); Hemoglobin 12.7 g/dL (12.0-15.5); Mean Corpuscular Hemoglobin 27.7 pg (27.0-33.0); Mean Corpuscular Volume 86.5 fl (81.6-98.3); Mean Platelet Volume 11.3 fl (7.4-10.4); Platelet Count 286 10x3/uL (150-450); RBC Distribution Width 16.7 % (11.5-14.5); Red Blood Cell (RBC) Count 4.59 10x6/uL (3.90-5.03); White Blood Cell (WBC) Count 9.7 10x3/uL (3.5-10.5)
[2022-05-30 05:41] LABS: Anion Gap 10 mmol/L (10-20); BUN (Urea Nitrogen) 55 mg/dL (9.8-20.1); Calc. Creatinine Clearance 22 mL/min (70-130); Calcium 8.3 mg/dL (7.8-10.44); Carbon Dioxide 25 mmol/L (23-31); Chloride 110 mmol/L (98-107); Estimated GFR 14; Glucose 165 mg/dL (83-110); Sodium 142 mmol/L (136-145)
[2022-05-30 05:44] LABS: Potassium 2.8 mmol/L (3.5-5.1)
[2022-05-30] MEDS ORDERED: Potassium Chloride 20 MEQ TAB PO SCH ×3 (06:00→16:00)
[2022-05-30] MEDS ORDERED: Polyethylene Glycol 3350 17 GM Packet PO PRN (08:39)
[2022-05-30] MEDS ORDERED: Polyethylene Glycol 3350 17 GM Packet PO SCH (08:41)
[2022-05-30] MEDS: Clopidogrel Bisulfate 75 MG TAB PO SCH (09:52)
[2022-05-30] MEDS: Heparin 5,000 UNITS/ML VIAL SC SCH ×3 (09:52→21:00)
[2022-05-30] MEDS: Aspirin 81 mg Enteric Coated Tablet PO SCH (09:52)
[2022-05-30] MEDS: Allopurinol 300 MG TAB PO SCH (09:52)
[2022-05-30] MEDS: busPIRone HCl 5 MG TAB PO SCH ×3 (09:52→20:57)
[2022-05-30 14:29] LABS: Anion Gap 11 mmol/L (10-20); BUN (Urea Nitrogen) 53 mg/dL (9.8-20.1); Calc. Creatinine Clearance 23 mL/min (70-130); Calcium 8.4 mg/dL (7.8-10.44); Carbon Dioxide 25 mmol/L (23-31); Chloride 109 mmol/L (98-107); Estimated GFR 14; Glucose 130 mg/dL (83-110); Potassium 3.2 mmol/L (3.5-5.1); Sodium 142 mmol/L (136-145)
[2022-05-30] MEDS: Acetaminophen 325 MG/10.15 ML UDCUP PO PRN (15:40)
[2022-05-30] MEDS: Atorvastatin Calcium 10 MG TAB PO SCH (20:56)
[2022-05-30] MEDS: Amlodipine 10 MG TAB PO SCH (20:56)
[2022-05-31] MEDS: Acetaminophen 325 MG/10.15 ML UDCUP PO PRN (02:09)
[2022-05-31] MEDS: Aspirin 81 mg Enteric Coated Tablet PO SCH (08:23)
[2022-05-31] MEDS: Heparin 5,000 UNITS/ML VIAL SC SCH ×2 (08:23→15:42)
[2022-05-31] MEDS: Allopurinol 300 MG TAB PO SCH (08:23)
[2022-05-31] MEDS: busPIRone HCl 5 MG TAB PO SCH ×2 (08:24→15:42)
[2022-05-31] MEDS: Clopidogrel Bisulfate 75 MG TAB PO SCH (08:24)
[2022-05-31] MEDS ORDERED: Bumetanide 1 MG TAB PO SCH (10:00)
[2022-05-31] MEDS ORDERED: Potassium Chloride 20 MEQ TAB PO SCH (10:00)
[2022-05-31] MEDS ORDERED: GUAIFENESIN SF SOLN 200 MG/10 ML UDCUP PO PRN (10:59)
[2022-05-31 11:56] VITALS: TEMP 97.9
[2022-05-31 13:19] VITALS: BMI 43.8
[2022-05-31 15:55] LABS: Anion Gap 12 mmol/L (10-20); BUN (Urea Nitrogen) 52 mg/dL (9.8-20.1); Calc. Creatinine Clearance 30 mL/min (70-130); Calcium 8.3 mg/dL (7.8-10.44); Carbon Dioxide 21 mmol/L (23-31); Chloride 112 mmol/L (98-107); Estimated GFR 15; Glucose 158 mg/dL (83-110); Potassium 3.8 mmol/L (3.5-5.1); Sodium 141 mmol/L (136-145)
[2022-05-31 16:00] VITALS: BP 157/86
[2022-05-31] MEDS ORDERED: Atorvastatin Calcium 10 MG TAB PO SCH (21:00)
[2022-06-01] MEDS ORDERED: Aspirin 81 mg Enteric Coated Tablet PO SCH (09:00)
[2022-06-01] MEDS ORDERED: Clopidogrel Bisulfate 75 MG TAB PO SCH (09:00)
[2022-06-01] MEDS ORDERED: Bumetanide 1 MG TAB PO SCH (09:00)
[2022-06-01] MEDS ORDERED: Empagliflozin 10 MG TAB PO SCH (09:00)
[2022-06-01] MEDS ORDERED: Lantus 1000 UNITS/10 ML VIAL SC SCH (09:00)
[2022-06-01] MEDS ORDERED: Allopurinol 300 MG TAB PO SCH (09:00)
== END 2022-05-31 17:26 | disposition home or self-care (01) ==
LOC: CSHERS 16:50 → CSHTELE 20:01
PROVIDERS: ADMIT Family Medicine; ATTEND Hospitalist
DX: N17.9 Acute kidney failure, unspecified (principal); I13.2 Hypertensive heart and chronic kidney disease with heart failure and with stage 5 chronic kidney disease, or end stage renal disease; I50.32 Chronic diastolic (congestive) heart failure; E11.22 Type 2 diabetes mellitus with diabetic chronic kidney disease; N18.5 Chronic kidney disease, stage 5; E87.6 Hypokalemia; D64.9 Anemia, unspecified; I25.10 Atherosclerotic heart disease of native coronary artery without angina pectoris; E11.42 Type 2 diabetes mellitus with diabetic polyneuropathy; E87.79 Other fluid overload; E88.09 Other disorders of plasma-protein metabolism, not elsewhere classified; M10.9 Gout, unspecified; K21.9 Gastro-esophageal reflux disease without esophagitis; F32.A Depression, unspecified; E66.9 Obesity, unspecified; Z20.822 Contact with and (suspected) exposure to COVID-19; Z86.73 Personal history of transient ischemic attack (TIA), and cerebral infarction without residual deficits; Z79.82 Long term (current) use of aspirin; Z79.02 Long term (current) use of antithrombotics/antiplatelets; Z79.84 Long term (current) use of oral hypoglycemic drugs; Z79.899 Other long term (current) drug therapy; Z95.5 Presence of coronary angioplasty implant and graft; Z90.710 Acquired absence of both cervix and uterus; Z98.890 Other specified postprocedural states
CPT/HCPCS: 71045; 80048 ×3; 80053; 81001; 82553; 82962 ×3; 83735; 83880; 84100; 84484 ×2; 85025 ×2; 93005 ×2; 94760; 96372 ×3; 96374; 97110; 97530 ×2; 99285; G0378 ×4; U0003; U0005; 36415; 36416; 93010; J1644; J1815; J1940